=== PATIENT | female | born 1980 | race American Indian/Alaskan Native ===

== ENCOUNTER 2019-06-01 06:30 | Day surgery (SDC) | payer OTHER ==
[~2019-06-01 06:30] MED LIST: LACTATED RINGERS 1,000 ML IV SCH; MARCAINE 0.5% INFILTRATI ONE; NEURONTIN PO NR; VERSED IV NR
[2019-06-01] MEDS ORDERED: NACL BACTERIOSTATIC INFILTRATI ONE (07:12)
--- NOTE | 2019-06-01 07:23 | Anesthesia Consultation ---
Anesthesia Consult and Med Hx Date of service: 06/01/19 - Airway Anesthetic Teeth Evaluation: Good ROM Head & Neck: Adequate Mental/Hyoid Distance: Adequate Mallampati Class: Class II Intubation Access Assessment: Probably Good - Pulmonary Exam CTA: Yes - Cardiac Exam Cardiac Exam: RRR - Pre-Operative Health Status ASA Pre-Surgery Classification: ASA2 Proposed Anesthetic Plan: General - Pulmonary Hx Smoking: Yes (2cigs/wk x20yrs) Hx Respiratory Symptoms: No Hx Sleep Apnea: No - Cardiovascular System Hx Hypertension: No Hx Heart Attack/AMI: No Hx Percutaneous Transluminal Coronary Angioplasty (PTCA): No - Central Nervous System Hx Seizures: No CVA: No - Gastrointestinal Hx Gastroesophageal Reflux Disease: No - Endocrine Hx Renal Disease: No Hx Liver Disease: No Hx Insulin Dependent Diabetes: No Hx Non-Insulin Dependent Diabetes: No Hx Thyroid Disease: No - Other Systems Hx Obesity: No - Additional Comments Anesthesia Medical History Comments: No hx anesthetic complications.
--- NOTE | 2019-06-01 07:24 | Anesthesia Day of Surgery ---
Anesthesia Day of Surgery - Day of Surgery Patient Examined: Yes Patient H&P Reviewed: Yes Patient is NPO: Yes
[2019-06-01] MEDS ORDERED: MARCAINE 0.5% INFILTRATI ONE ×3 (07:48→11:05)
[2019-06-01] MEDS ORDERED: SILVER NITRATE TP ONE (07:49)
[2019-06-01 07:51] LABS: Hematocrit 41.5 % (30.3-42.9); Hemoglobin 14.7 gm/dl (10.1-14.3)
[2019-06-01] MEDS ORDERED: ROBINUL ONE (09:01)
[2019-06-01] MEDS ORDERED: ZOFRAN ONE (09:01)
[2019-06-01] MEDS ORDERED: DECADRON ONE (09:01)
[2019-06-01] MEDS ORDERED: BLOXIVERZ ONE (09:01)
[2019-06-01] MEDS ORDERED: ZEMURON IV ONE (09:01)
[2019-06-01] MEDS ORDERED: DIPRIVAN 10 MG/ML IV ONE (09:01)
[2019-06-01] MEDS ORDERED: SUBLIMAZE ONE (09:01)
[2019-06-01] MEDS ORDERED: XYLOCAINE MPF 2% ONE (09:01)
[2019-06-01] MEDS ORDERED: NACL 0.9% 1000 ML IR ONE (09:30)
[2019-06-01] MEDS ORDERED: DEMEROL ONE (11:28)
[2019-06-01] MEDS: DILAUDID IV PRN ×2 (11:43→11:56)
--- NOTE | 2019-06-01 11:47 | Operative Report ---
Operative Report Operative Report: Preoperative diagnosis: 1. Chronic pelvic pain. 2. Abnormal uterine bleeding. Postoperative diagnosis: 1. Chronic pelvic pain. 2. Left ovarian cysts. 3. Pelvic congestion. 4. Abnormal uterine bleeding. Procedure: 1. Diagnostic laparoscopy. 2. Left ovarian cyst drainage. 3. Removal of Filshie clip from the left fallopian tube. 4. Hysterecopy. 4. Dilatation and curettage. Surgeon: Dr. Andrew Chief Digital Officer: none Anesthesia: general EBL: negligible IVF: RL 1 liter Complications: none Intraoperative findings: 1. Thickened endometrium. 2. Normal uterus, fallopian tubes and right ovary. 3. Left ovarian cysts. 4. Filshie clips in the left fallopian tube. Procedure details: Risks, benefits, and alternatives of the procedure were discussed in detail with the patient which included but not limited to risk of infection, hemorrhage requiring blood transfusion, injury to the bowel or bladder and blood vessels, possible conversion of the procedure to a laparotomy, possible removal of ovaries. The patient expressed understanding, her questions were answered, and she gave informed consent. The patient was taken to the operating room with an IV fluid using Ringer's lactate. In the operating room, she was placed in a dorsal supine position and given general anesthesia. She was then placed on the stirrups in a dorsal lithotomy position. Examination under anesthesia revealed normal vagina and cervix, a 7-week size uterus, nonpalpable adnexae. A Piper catheter was placed. The perineum, vagina, cervix, and abdomen were washed and she was prepared and draped in usual sterile fashion. A weighted speculum was placed in the vagina and the anterior lip of the cervix was grasped with a single-tooth tenaculum. Endocervical curettage was done. The cervical os was dilated and the hysteroscope was introduced into the uterine cavity. It revealed a thickened endometrium. The hysteroscope was then removed form the uterine cavity. A gentle curettage was performed until a gritty texture was noticed. The specimen which consisted of ECC and EMC was sent to pathology. A i3 membraneI uterine manipulator was advanced into the uterine cavity to provide a means of manipulating the uterus and the procedure. The speculum and tenaculum were then removed. Attention was then turned to the patient's abdomen where a 5 mm skin incision was made in the infraumbilical fold. The Veress needle was introduced into the peritoneal cavity while tenting the abdominal wall. Intraperitoneal placement was confirmed by using a water-filled syringe and by noticing a drop in the intra-abdominal pressure with CO2 gas insufflation. The trocar and sleeves were then advanced without difficulty into the abdomen where intraperitoneal placement was confirmed using laparoscope. Pneumoperitoneum was achieved with 3.5 L of CO2 gas. A second 5 mm skin incision was made in the left lower quadrant and a 5 mm trocar and sleeves were then advanced into the abdominal cavity under direct visualization with the laparoscope. A quick survey of the anatomy revealed a normal uterus, fallopian tubes, and right ovary, an enlarged left ovary with 2 simple cysts. No endometriosis was seen. There was pelvic congestion. A Filshie clip which was hanging from the left fallopian tube and that appeared to be pulling on it was removed. Cautery was used to puncture the cysts and straw colored fluid was drained. Good hemostasis was confirmed. The ports were then opened to release to CO2 gas from the abdomen. The instruments were then removed. The ports were closed with 3.0 vicryl sutures. Steri-Strip and Tegaderm were placed. The HUMI uterine manipulator was then removed from the uterine cavity. Yanely Piper catheter was removed. The counts of laps, needles, sponges, and instruments were correct 2. The patient tolerated the procedure well. She was awakened from anesthesia and taken to the recovery room in a stable condition.
[2019-06-01 13:22] VITALS: BP 125/51
--- NOTE | 2019-06-01 15:42 | Post Anesthesia Evaluation ---
- Post Anesthesia Evaluation Patient Participated: Yes Airway Patent: Yes Stable Respiratory Function: Yes Nausea/Vomiting: No Temp > 96.8F: Yes Pain Manageable: Yes Adequeate Hydration: Yes Anesthesia Complications: No
== END 2019-06-01 13:25 | disposition home or self-care (01) ==
LOC: OR 06:30
PROVIDERS: ATTEND Obstetrics & Gynecology
DX: N83.202 Unspecified ovarian cyst, left side (principal); N83.8 Other noninflammatory disorders of ovary, fallopian tube and broad ligament; F17.210 Nicotine dependence, cigarettes, uncomplicated; N93.9 Abnormal uterine and vaginal bleeding, unspecified; K21.9 Gastro-esophageal reflux disease without esophagitis; Z88.8 Allergy status to other drugs, medicaments and biological substances; Z98.891 History of uterine scar from previous surgery; Z98.890 Other specified postprocedural states
CPT/HCPCS: 36415; 49322; 58558; 58679; 81025; 85014; 85018; 88305; J1100; J1170; J2175; J2250; J2405; J2704; J2710; J3010; J7030; J7120

== ENCOUNTER 2019-08-08 08:45 | Day surgery (SDC) | payer OTHER ==
[2019-08-08] MEDS ORDERED: FERRIC SUBSULFATE TOPICAL SOLN 8 ML TP ONE (09:26)
[2019-08-08] MEDS ORDERED: LIDOCAINE 1%/EPINEPHRINE 1:100,000 VIAL (20 ML) INFILTRATI ONE (09:26)
[2019-08-08] MEDS ORDERED: POTASSIUM IODIDE/IODINE (LUGOLS) 30 ML TP ONE (09:26)
--- NOTE | 2019-08-08 09:27 | Anesthesia Consultation ---
Anesthesia Consult and Med Hx Date of service: 08/08/19 - Airway Anesthetic Teeth Evaluation: Good ROM Head & Neck: Adequate Mental/Hyoid Distance: Adequate Mallampati Class: Class I - Pulmonary Exam CTA: Yes - Cardiac Exam Cardiac Exam: RRR - Pre-Operative Health Status ASA Pre-Surgery Classification: ASA2 (smoker) Proposed Anesthetic Plan: General - Pulmonary Hx Smoking: Yes (2cigs/wk x20yrs) Hx Respiratory Symptoms: No - Central Nervous System Hx Psychiatric Problems: No - Gastrointestinal Hx Gastroesophageal Reflux Disease: No - Endocrine Hx Insulin Dependent Diabetes: No Hx Non-Insulin Dependent Diabetes: No Hx Thyroid Disease: No - Other Systems Hx Cancer: No Hx Obesity: No
--- NOTE | 2019-08-08 09:27 | Anesthesia Day of Surgery ---
Anesthesia Day of Surgery - Day of Surgery Patient Examined: Yes Patient H&P Reviewed: Yes Patient is NPO: Yes
[2019-08-08] MEDS ORDERED: HYDROmorphone 1 MG/1 ML INJ IV PRN (09:29)
[2019-08-08] MEDS ORDERED: ONDANSETRON 4 MG/2 ML INJ IV PRN (09:29)
[2019-08-08] MEDS ORDERED: LACTATED RINGERS 1,000 ML IV SCH (10:00)
[2019-08-08] MEDS ORDERED: MIDAZOLAM 2 MG/2 ML INJ IV NR (10:00)
[2019-08-08 10:13] VITALS: BP 112/69
== END 2019-08-08 09:55 | disposition home or self-care (01) ==
LOC: OR 08:45
PROVIDERS: ATTEND Obstetrics & Gynecology
DX: N87.1 Moderate cervical dysplasia (principal); Z53.8 Procedure and treatment not carried out for other reasons; K21.9 Gastro-esophageal reflux disease without esophagitis; F17.210 Nicotine dependence, cigarettes, uncomplicated; Z98.891 History of uterine scar from previous surgery; Z98.890 Other specified postprocedural states
CPT/HCPCS: 81025; J7120

== ENCOUNTER 2019-08-25 09:16 | Day surgery (SDC) | payer OTHER ==
[2019-08-25] MEDS ORDERED: fentaNYL 100 MCG/2 ML INJ IV PRN (09:51)
--- NOTE | 2019-08-25 09:51 | Anesthesia Day of Surgery ---
Anesthesia Day of Surgery - Day of Surgery Patient Examined: Yes Patient H&P Reviewed: Yes Patient is NPO: Yes
--- NOTE | 2019-08-25 09:51 | Anesthesia Consultation ---
Anesthesia Consult and Med Hx Date of service: 08/25/19 - Airway Anesthetic Teeth Evaluation: Good ROM Head & Neck: Adequate Mental/Hyoid Distance: Adequate Mallampati Class: Class II Intubation Access Assessment: Probably Good - Pulmonary Exam CTA: Yes - Cardiac Exam Cardiac Exam: RRR - Pre-Operative Health Status ASA Pre-Surgery Classification: ASA1 Proposed Anesthetic Plan: MAC - Pulmonary Hx Smoking: Yes (2cigs/wk x20yrs) Hx Respiratory Symptoms: No - Cardiovascular System Hx Hypertension: No Hx Heart Attack/AMI: No - Central Nervous System CVA: No - Gastrointestinal Hx Gastroesophageal Reflux Disease: No - Endocrine Hx Renal Disease: No Hx Liver Disease: No Hx Insulin Dependent Diabetes: No Hx Non-Insulin Dependent Diabetes: No Hx Thyroid Disease: No - Other Systems Hx Obesity: No
[2019-08-25] MEDS ORDERED: POTASSIUM IODIDE/IODINE (LUGOLS) 30 ML TP ONE ×2 (09:58→14:00)
[2019-08-25] MEDS ORDERED: FERRIC SUBSULFATE TOPICAL SOLN 8 ML TP ONE ×2 (09:58→14:05)
[2019-08-25] MEDS ORDERED: LIDOCAINE 1%/EPINEPHRINE 1:100,000 VIAL (20 ML) INFILTRATI ONE ×3 (09:58→13:52)
[2019-08-25] MEDS ORDERED: LACTATED RINGERS 1,000 ML IV SCH (10:00)
[2019-08-25] MEDS ORDERED: MIDAZOLAM 2 MG/2 ML INJ IV NR (10:00)
[2019-08-25] MEDS ORDERED: fentaNYL 100 MCG/2 ML INJ ONE (10:15)
[2019-08-25] MEDS ORDERED: PROPOFOL 200 MG/20 ML VIAL IV ONE ×2 (10:15→14:12)
[2019-08-25] MEDS ORDERED: LIDOCAINE MPF (2%) 20 MG/1 ML VIAL 5 ML ONE (10:16)
[2019-08-25 18:33] VITALS: BP 118/78
--- NOTE | 2019-08-25 19:54 | Post Operative Note ---
Pre-op diagnosis: MAKAYLA 2 Post-op diagnosis: other (pending path) Findings: Grossly cervix was WNL Procedure: LEEP This patient is a 39-year-old with a history of tubal ligation who is status post a recent D&C that showed MAKAYLA-2 on ECC. Her colposcopy showed MAKAYLA-1. Because a result of that MAKAYLA-2 noted ECC patient here for her LEEP procedure. Patient taken the operating room and prepped and draped in the usual fashion. Sterile speculum placed and Lugol solution applied to the cervix. Single tooth tenaculum applied to the anterior lip of the cervix and local lidocaine with epinephrine applied at the 2, 4, 8 and 10:00 positions of the cervical stroma. 10 mL total were used. At this point the white loop was selected. The LEEP cervical cone specimen was then obtained without white loop in a single pass without difficulty. There is a little bit of overhanging tissue that was also obtained afterwards. At this point, the loop was changed to a small narrow yellow loop. With that loop, the endocervical top hat was obtained and that was done without difficulty in a single pass. At this point the surrounding ectocervical mucosal margin was all cauterized as well as any areas of oozing within the cervical crater. Good hemostasis noted throughout this point and Monsel solution was placed in the cervical crater. Procedure was then concluded at this point. Patient tolerated the procedure well. All instrument counts were correct. Patient to recovery room in stable condition Anesthesia: MAC Surgeon: FERNANDO RHOADES Estimated blood loss: minimal Pathology: list (1) cervical cone 2) endocervical top hate) Condition: stable Disposition: same day
--- NOTE | 2019-08-25 19:59 | Discharge Summary ---
Providers - Providers Date of Admission: 08/25/19 Date of discharge: 08/25/19 Attending physician: FERNANDO RHOADES Primary care physician: AVA HOLDEN Hospitalization Reason for admission: other (LEEP for MAKAYLA 2) Disposition: DC-01 TO HOME OR SELFCARE - Discharge Diagnoses (1) S/P LEEP Status: Acute Plan - Discharge Medications Prescriptions: Acetaminophen/Codeine [Tylenol /Codeine # 3 tab] 1 tab PO Q6H PRN #10 tab PRN Reason: Pain , Severe (7-10) - Provider Discharge Summary Activity: other (nothing in vagina until follow up visit) Additional instructions: [] Smoking cessation referral if applicable(refer to patient education folder for contact #) [] Refer to [facility] Booklet Call your doctor immediately for: * Fever > 100.5 * Heavy vaginal bleeding ( >1 pad per hour) * Severe persistent headache * Shortness of breath * Reddened, hot, painful area to leg or breast * Drainage or odor from incision. * Keep incision clean and dry at all times and follow doctor's instructions regarding bathing/showering - Follow up plan Follow up: AVA HOLDEN MD [Primary Care Provider] - 7 Days Forms: Work/School Excuse Out Patient, Outpatient Surgery DC Inst. Pending Studies pathology results
--- NOTE | 2019-08-26 11:00 | Post Anesthesia Evaluation ---
- Post Anesthesia Evaluation Patient Participated: Yes Airway Patent: Yes Stable Respiratory Function: Yes Nausea/Vomiting: No Temp > 96.8F: Yes Pain Manageable: Yes Adequeate Hydration: Yes Anesthesia Complications: No Block Receding Appropriately: Yes Patient on Ventilator: No
== END 2019-08-25 09:17 | disposition home or self-care (01) ==
LOC: OR 09:16
PROVIDERS: ATTEND Obstetrics & Gynecology
DX: N87.1 Moderate cervical dysplasia (principal); N87.0 Mild cervical dysplasia; K21.9 Gastro-esophageal reflux disease without esophagitis; F17.210 Nicotine dependence, cigarettes, uncomplicated; Z88.8 Allergy status to other drugs, medicaments and biological substances; Z79.899 Other long term (current) drug therapy; Z98.51 Tubal ligation status; Z98.890 Other specified postprocedural states; Z98.891 History of uterine scar from previous surgery
CPT/HCPCS: 57522; 81025; 88305; 88307; J2250; J2704; J3010; J7120